=== PATIENT | female | born 1995 | race Caucasian/White ===

== ENCOUNTER → 2017-02-17 | Outpatient (CLI) | payer OTHER | LOC: MW.CHOBGYN 15:13 | PROVIDERS: ATTEND Advanced Practice Midwife | DX: Z34.90 Encounter for supervision of normal pregnancy, unspecified, unspecified trimester (principal) | CPT/HCPCS: 36415; 80305; 81003; 85025; 86592; 86762; 86803; 86850; 86900; 86901; 87086; 87340; 87389; 87491; 87591 ==

== ENCOUNTER → 2017-02-22 | Outpatient (CLI) | payer OTHER ==
--- NOTE | 2017-02-23 10:45 | US ---
Examination: Greater than 14 weeks transabdominal ultrasound with color Doppler and M-mode evaluatio n. HISTORY: FINDINGS: LMP is 09/28/2016 EVALUATION: Posterior placenta with a breech lie and grade 1. Visually amniotic fluid is withi n normal limits. Three-vessel cord is seen. Ventricles are within normal limits. Four chamber heart is noted. Heart rate is 156 beats per minute. BIOMETRY AND GESTATIONAL AGE: Biparietal diameter 5.3 cm. Abdominal circumference measures 16.7 cm. The femoral length is 3.6 cm w ith head circumference of 19.9 cm. Gestational age is 21 weeks and 5 days. The expected date of deli very is approximately 07/30/2017. Fetus weight is 439 grams. Overall the fetus is within the 79th pe rcentile. Other detail anatomy summarized into PACs sheet after the images. No anatomical anomalies. IMPRESSION: Single active IU with breech fetus. Posterior placenta with grade 1, no placenta previa. N o anomalies are seen. Amniotic fluid appears within normal limits.
== END ==
LOC: MW.US 15:00
PROVIDERS: ATTEND Advanced Practice Midwife
DX: Z34.90 Encounter for supervision of normal pregnancy, unspecified, unspecified trimester (principal); Z3A.21 21 weeks gestation of pregnancy
CPT/HCPCS: 76805; 76805-26; 85025; 86592; 86762; 86803; 86850; 86900; 86901; 87086; 87340; 87389

== ENCOUNTER 2017-06-24 02:27 | Inpatient (IN) | payer MEDICAID, SELFPAY ==
[2017-06-24] MEDS ORDERED: Water For Irrigation,Sterile 1,000 ML Container IRR PRN ×2 (03:06→05:47)
[2017-06-24] MEDS ORDERED: Misoprostol 200 MCG Tab PO PRN ×2 (03:06→05:47)
[2017-06-24] MEDS ORDERED: Lidocaine 1% 50 ML MDV INJECT PRN ×2 (03:06→05:47)
[2017-06-24] MEDS ORDERED: Butorphanol 1 MG/ML SDV IVPUSH PRN ×2 (03:06→05:47)
[2017-06-24] MEDS ORDERED: Sodium Chloride 0.9% 2.5 ML Syringe FLUSH PRN ×2 (03:06→05:47)
[2017-06-24] MEDS ORDERED: Sodium Chloride 0.9% 10 ML Syringe FLUSH PRN ×2 (03:06→05:47)
[2017-06-24] MEDS ORDERED: Methylergonovine 0.2 MG/1 ML Amp IM PRN ×3 (03:06→18:22)
[2017-06-24] MEDS ORDERED: Nalbuphine 10 MG/1 ML Vial IVPUSH PRN ×2 (03:06→05:47)
[2017-06-24] MEDS ORDERED: Carboprost Tromethamine 250 MCG/1 ML Amp IM PRN ×2 (03:06→05:47)
[2017-06-24] MEDS ORDERED: Lactated Ringers 1,000 ML IV SCH ×2 (03:15→06:00)
[2017-06-24] MEDS ORDERED: Oxytocin/Lactated Ringers 30 UNIT/500 ML BAG IV SCH ×2 (03:15→06:00)
[2017-06-24] MEDS ORDERED: Ropivacaine 0.2% 2 MG/ML 20 ML SDV ONE (04:34)
--- NOTE | 2017-06-24 05:05 | PCM.PREANE ---
Preanesthetic Assessment - Anesthesia/Transfusion/Family Hx Anesthesia History: Prior Anesthesia Without Reaction Family History of Anesthesia Reaction: No - Review of Systems Other: Reports: None - Physical Assessment Height: 5 ft Weight: 64.864 kg Mental Status: Alert & Oriented x3 Airway Class: Mallampati = 2 Dentition: Reports: Normal Dentition Thyro-Mental Finger Breadths: 3 Mouth Opening Finger Breadths: 2 ROM/Head Extension: Full - Lab Values: Laboratory Last Values WBC 11.59 K/uL (4.0-11.0) H 06/24/17 03:35 RBC 3.74 M/uL (4.30-5.90) L 06/24/17 03:35 Hgb 10.4 g/dL (12.0-16.0) L 06/24/17 03:35 Hct 32.0 % (36.0-46.0) L 06/24/17 03:35 MCV 85.6 fL (80.0-98.0) 06/24/17 03:35 MCH 27.8 pg (27.0-32.0) 06/24/17 03:35 MCHC 32.5 g/dL (31.0-37.0) 06/24/17 03:35 RDW Std Deviation 48.2 fl (28.0-62.0) 06/24/17 03:35 RDW Coeff of Denys 16 % (11.0-15.0) H 06/24/17 03:35 Plt Count 278 K/uL (150-400) 06/24/17 03:35 MPV 9.80 fL (7.40-12.00) 06/24/17 03:35 Nucleated RBC % 0.0 /100WBC 06/24/17 03:35 Nucleated RBCs # 0 K/uL 06/24/17 03:35 Urine Color RED 06/24/17 03:45 Urine Appearance SLT CLOUDY 06/24/17 03:45 Urine pH 7.0 (5.0-8.0) 06/24/17 03:45 Ur Specific Rel[place] 1.010 (1.001-1.035) 06/24/17 03:45 Urine Protein 30 mg/dL (NEGATIVE) 06/24/17 03:45 Urine Glucose (UA) NEGATIVE mg/dL (NEGATIVE) 06/24/17 03:45 Urine Ketones NEGATIVE mg/dL (NEGATIVE) 06/24/17 03:45 Urine Occult Blood LARGE (NEGATIVE) H 06/24/17 03:45 Urine Nitrite NEGATIVE (NEGATIVE) 06/24/17 03:45 Urine Bilirubin NEGATIVE (NEGATIVE) 06/24/17 03:45 Urine Urobilinogen 0.2 EU/dL (<2.0) 06/24/17 03:45 Ur Leukocyte Esterase SMALL (NEGATIVE) 06/24/17 03:45 Blood Type O POSITIVE 06/24/17 03:35 Antibody Screen NEGATIVE 06/24/17 03:35 - Allergies Allergies/Adverse Reactions: Allergies Allergy/AdvReac Type Severity Reaction Status Date / Time egg Allergy Rash Verified 06/24/17 03:04 Fish Containing Products Allergy Rash Verified 06/24/17 03:04 - Blood Blood Available: Yes Product(s) Available: PRBC - Acknowledgements Anesthesia Type Planned: Epidural Pt an Appropriate Candidate for the Planned Anesthesia: Yes Alternatives and Risks of Anesthesia Discussed w Pt/Guardian: Yes Pt/Guardian Understands and Agrees with Anesthesia Plan: Yes PreAnesthesia Questionnaire - Past Health History Medical/Surgical History: Denies Medical/Surgical History - Past Surgical History HEENT Surgical History: Reports: Oral Surgery - SUBSTANCE USE Smoking Status *Q: Never Smoker Recreational Drug Use History: No - CURRENT (IN HOUSE) MEDS Current Meds: Current Medications Butorphanol Tartrate (Stadol) 1 mg IVPUSH Q1H PRN PRN Reason: Pain Last Admin: 06/24/17 04:03 Dose: 1 mg Carboprost Tromethamine (Hemabate Ds) 250 mcg IM ASDIRECTED PRN PRN Reason: Post Hemorrhage Lactated Ringer's (Ringers, Lactated) 1,000 mls @ 150 mls/hr IV ASDIRECTED BOBY Last Admin: 06/24/17 03:38 Dose: 150 mls/hr Lidocaine HCl (Xylocaine 1%) 50 ml INJECT .ONCE PRN PRN Reason: Laceration repair Methylergonovine Maleate (Methergine) 0.2 mg IM ASDIRECTED PRN PRN Reason: Post Hemorrhage Misoprostol (Cytotec) 200 mcg PO .ONCE PRN PRN Reason: Post Hemorrhage Nalbuphine HCl (Nubain) 10 mg IVPUSH Q1H PRN PRN Reason: Pain (severe 7-10) Sodium Chloride (Saline Flush) 10 ml FLUSH ASDIRECTED PRN PRN Reason: Keep Vein Open Sodium Chloride (Saline Flush) 2.5 ml FLUSH ASDIRECTED PRN PRN Reason: Keep Vein Open Sterile Water (Sterile Water For Irrigation) 1,000 ml IRR ASDIRECTED PRN PRN Reason: delivery Discontinued Medications Oxytocin/Lactated Ringer's (Pitocin In Lr 30 Units/500 Ml) 30 unit in 500 mls @ 999 mls/hr IV TITRATE BOBY; 999 MUNITS/MIN PRN Reason: Protocol Stop: 06/24/17 03:46 Ropivacaine/Fentanyl/NS (Fentanyl 2 Mcg-Ropiv 0.2%-Ns) Confirm Administered Dose 100 mls @ as directed .ROUTE .STK-MED ONE Stop: 06/24/17 04:35 Ropivacaine (Naropin 0.2%) Confirm Administered Dose 20 ml .ROUTE .STK-MED ONE Stop: 06/24/17 04:35
[2017-06-24] MEDS ORDERED: Ondansetron 4 MG/2 ML SDV IVPUSH ONE (09:20)
[2017-06-24] MEDS ORDERED: hydrOXYzine Pamoate 25 MG Cap PO ONE (09:20)
[2017-06-24] MEDS ORDERED: Oxytocin/Lactated Ringers 30 UNIT/500 ML BAG ONE (14:44)
[2017-06-24] MEDS ORDERED: Ampicillin/Sulbactam Na 3 GM in Sodium Chloride 0.9% 100 ML IV ONE ×2 (16:06→16:17)
--- NOTE | 2017-06-24 16:20 | PCM.SN ---
- Free Text/Narrative Note: Called for "epidural pump" and medication alarm at 1540. I was not in hospital and did not know anything about the patient nor the unavailabiltity of the roofing contractor POLITICAL RESEARCH SCIENTIST....who I subsequently discovered was in the OR with a general anesthetic. The tech that called me from OB was directed by me to summon the RN on the case and inform me of the "clinical" situation. She did inform me and I stated that if medication was immediately required to use orders of the surgeon for analgesia..I was on my way but would be 15+min out until arriving to assist. By the time I got here the POLITICAL RESEARCH SCIENTIST had completed the case and she went to OB and resolved the problem.
[2017-06-24] MEDS ORDERED: Lanolin 100% Cream 7 GM Tube TOP PRN (18:22)
[2017-06-24] MEDS ORDERED: Benzocaine/Menthol 20%-0.5% Spray 78 GM Cannister TOP PRN (18:22)
[2017-06-24] MEDS ORDERED: Witch Hazel Medicated Pads 40/Jar TOP PRN (18:22)
[2017-06-24] MEDS ORDERED: Bisacodyl 10 MG Supp RECTAL PRN (18:22)
[2017-06-24] MEDS ORDERED: Acetaminophen 500 MG Tab PO PRN (18:22)
[2017-06-24] MEDS: oxyCODONE 5 MG Tab PO PRN (20:26)
[2017-06-24] MEDS: Ibuprofen 800 MG Tab PO PRN (20:27)
--- NOTE | 2017-06-24 22:09 | OR ---
SURGEON: Bren Madrigal M.D. DATE OF PROCEDURE: 06/24/2017 PREOPERATIVE DIAGNOSIS: Thirty-eight and 3/7th week intrauterine , active spontaneous labor. POSTOPERATIVE DIAGNOSES: Thirty-eight and 3/7th week intrauterine , active spontaneous labor and maternal fever. PROCEDURE: Term spontaneous vaginal delivery with repair of second-degree laceration. ANESTHESIA: Epidural. ESTIMATED BLOOD LOSS: Less than 300 mL. FINDINGS: Live born female, scores 9 and 9, weighing 3210 g. Placenta spontaneous, Schultze intact with 3 vessels. Perineum with a second-degree perineal laceration. COMPLICATIONS: None known. and mother remained in [facility] in good condition. BRIEF HISTORY: This is a 22-year-old female. She is . She presented in active spontaneous labor, category 1 heart tones. She was admitted to Labor and Delivery. When she was 4 to 5 cm dilated, she received an epidural for pain control. She had artificial rupture of membranes. They were blood tinged, but clear fluid was noted. She continued to have overall category 1 heart tones with brief episodes of category 2 heart tones and progressed to complete. DESCRIPTION OF PROCEDURE: With the patient in dorsal lithotomy position, the patient pushed. Before pushing, an approximately 3 hours prior to delivery, she did develop a fever of 101.5. She was started on Unasyn and was allowed to continue to labor. She then began to push to a 5+ station, at which time the head was delivered spontaneously and atraumatically over the perineum with support, with subsequent delivery of the 's shoulders and body without any difficulty. Meconium was noted at the time of delivery and therefore bulb suction of the nose and mouth was performed. The infant was a live born female, scores 9 and 9, weighing 3210 g. Cord blood was collected for ABGs as well as routine cord blood sampling after the cord had been doubly clamped and cut after it had ceased to pulsate. Pitocin was initiated after delivery of the infant to assist with delivery of the placenta, which was delivered spontaneously, Schultze intact with 3 vessels. Upon inspection of the pelvis and perineum, there were no periurethral, vaginal sidewall, cervical, or rectal lacerations. There was a second-degree perineal laceration. This was repaired using multiple interrupted sutures to reapproximate the transverse perineal muscle as well as the deep perineal tissue, a running lock suture of 2-0 Caprosyn for the vaginal mucosa and subcuticular sutures that were utilized to reapproximate the skin which had irregular tears on the perineum. A rectal exam confirmed that there were no sutures in the rectum and that the sphincter was intact. The placenta was inspected and appeared intact with 3 vessels. There was no foul smell or odor to the placenta, but it was sent to Pathology. She will also be continued on Unasyn 1.5 g every 6 hours for at least the first 24 hours . Mother and are in the [facility] in good condition. ELLIOTT UREÑA /[id number]
[2017-06-24] MEDS: Ampicillin/Sulbactam Na 1.5 GM in Sodium Chloride 0.9% 50 ML IV SCH (22:31)
[2017-06-24] MEDS: Docusate Sodium 100 MG Cap PO PRN (22:32)
[2017-06-25] MEDS: Ibuprofen 800 MG Tab PO PRN ×3 (03:31→22:58)
[2017-06-25] MEDS: Ampicillin/Sulbactam Na 1.5 GM in Sodium Chloride 0.9% 50 ML IV SCH ×3 (04:32→16:45)
[2017-06-25] MEDS: oxyCODONE 5 MG Tab PO PRN ×2 (07:42→20:46)
--- NOTE | 2017-06-25 09:50 | PCM.PNPP ---
- General Info Date of Service: 06/25/17 Functional Status: Reports: Pain Controlled, Tolerating Diet, Ambulating, Urinating - Review of Systems General: Reports: No Symptoms HEENT: Reports: No Symptoms Pulmonary: Reports: No Symptoms Cardiovascular: Reports: No Symptoms Gastrointestinal: Reports: No Symptoms Genitourinary: Reports: No Symptoms Musculoskeletal: Reports: No Symptoms Skin: Reports: No Symptoms Neurological: Reports: No Symptoms Psychiatric: Reports: No Symptoms - General Info Date of Service: 06/25/17 - Patient Data Vital Signs - Most Recent: Last Vital Signs Temp 36.4 C 06/25/17 08:23 Pulse 103 H 06/25/17 08:23 Resp 16 06/25/17 08:23 BP 123/71 06/25/17 08:23 Pulse Ox 98 06/25/17 08:23 Weight - Most Recent: 64.864 kg Lab Results - Last 24 Hours: Laboratory Results - last 24 hr 06/25/17 Range/Units 05:35 Hgb 8.0 L (12.0-16.0) g/dL Hct 25.0 L (36.0-46.0) % Med Orders - Current: Current Medications Acetaminophen (Tylenol Extra Strength) 1,000 mg PO Q4H PRN PRN Reason: Pain Benzocaine/Menthol (Dermoplast Pain Relief 20%-0.5% [place]) 78 gm TOP ASDIRECTED PRN PRN Reason: Perineal Comfort Measure Last Admin: 06/24/17 19:20 Dose: 78 gm Bisacodyl (Dulcolax) 10 mg RECTAL .ONCE PRN PRN Reason: Constipation Docusate Sodium (Colace) 100 mg PO BID PRN PRN Reason: Constipation Last Admin: 06/24/17 22:32 Dose: 100 mg Emollient Ointment (Lansinoh Hpa) 0 gm TOP ASDIRECTED PRN PRN Reason: Sore Nipples Ampicillin Sodium/Sulbactam (Sodium 1.5 gm/ Sodium Chloride) 50 mls @ 200 mls/ hr IV Q6H BOBY Last Admin: 06/25/17 04:32 Dose: 200 mls/hr Ibuprofen (Motrin) 800 mg PO Q6H PRN PRN Reason: Pain Last Admin: 06/25/17 03:31 Dose: 800 mg Methylergonovine Maleate (Methergine) 0.2 mg IM .ONCE PRN PRN Reason: Excessive Vaginal Bleeding Oxycodone HCl (Oxycodone) 5 mg PO Q2H PRN PRN Reason: Pain Last Admin: 06/25/17 07:42 Dose: 5 mg Witch Cassie (Tucks) 1 pad TOP ASDIRECTED PRN PRN Reason: comfort care Last Admin: 06/24/17 19:19 Dose: 1 pad Discontinued Medications Butorphanol Tartrate (Stadol) 1 mg IVPUSH Q1H PRN PRN Reason: Pain Last Admin: 06/24/17 04:03 Dose: 1 mg Butorphanol Tartrate (Stadol) 1 mg IVPUSH Q1H PRN PRN Reason: Pain Carboprost Tromethamine (Hemabate Ds) 250 mcg IM ASDIRECTED PRN PRN Reason: Post Hemorrhage Hydroxyzine Pamoate (Vistaril) 50 mg PO ONETIME ONE Stop: 06/24/17 09:21 Last Admin: 06/24/17 09:33 Dose: 50 mg Lactated Ringer's (Ringers, Lactated) 1,000 mls @ 150 mls/hr IV ASDIRECTED BOBY Last Admin: 06/24/17 03:38 Dose: 150 mls/hr Oxytocin/Lactated Ringer's (Pitocin In Lr 30 Units/500 Ml) 30 unit in 500 mls @ 999 mls/hr IV TITRATE BOBY; 999 MUNITS/MIN PRN Reason: Protocol Stop: 06/24/17 03:46 Last Admin: 06/24/17 21:54 Dose: Not Given Lactated Ringer's (Ringers, Lactated) 1,000 mls @ 150 mls/hr IV ASDIRECTED BOBY Last Admin: 06/24/17 13:15 Dose: 150 mls/hr Oxytocin/Lactated Ringer's (Pitocin In Lr 30 Units/500 Ml) 30 unit in 500 mls @ 999 mls/hr IV TITRATE BOBY; 999 MUNITS/MIN PRN Reason: Protocol Stop: 06/24/17 06:31 Last Admin: 06/24/17 21:54 Dose: Not Given Oxytocin/Lactated Ringer's (Pitocin In Lr 30 Units/500 Ml) Confirm Administered Dose 30 unit in 500 mls @ as directed .ROUTE .STK-MED ONE Stop: 06/24/17 14:45 Last Admin: 06/24/17 14:54 Dose: 2 unit Ropivacaine/Fentanyl/NS (Fentanyl 2 Mcg-Ropiv 0.2%-Ns) Confirm Administered Dose 100 mls @ as directed .ROUTE .eduFire-MED ONE Stop: 06/24/17 16:04 Last Admin: 06/24/17 21:56 Dose: Not Given Ampicillin Sodium/Sulbactam (Sodium 3 gm/ Sodium Chloride) 100 mls @ 200 mls/ hr IV ONETIME ONE Stop: 06/24/17 16:35 Last Admin: 06/24/17 16:30 Dose: 200 mls/hr Ampicillin Sodium/Sulbactam (Sodium 3 gm/ Sodium Chloride) 100 mls @ 200 mls/ hr IV ONETIME ONE Stop: 06/24/17 16:35 Last Admin: 06/24/17 16:32 Dose: 200 mls/hr Lidocaine HCl (Xylocaine 1%) 50 ml INJECT .ONCE PRN PRN Reason: Laceration repair Last Admin: 06/24/17 17:45 Dose: 50 ml Methylergonovine Maleate (Methergine) 0.2 mg IM ASDIRECTED PRN PRN Reason: Post Hemorrhage Misoprostol (Cytotec) 200 mcg PO .ONCE PRN PRN Reason: Post Hemorrhage Nalbuphine HCl (Nubain) 10 mg IVPUSH Q1H PRN PRN Reason: Pain (severe 7-10) Ondansetron HCl (Zofran) 4 mg IVPUSH ONETIME ONE Stop: 06/24/17 09:21 Last Admin: 06/24/17 09:32 Dose: 4 mg Ropivacaine (Naropin 0.2%) Confirm Administered Dose 20 ml .ROUTE .STZulahoo-MED ONE Stop: 06/24/17 04:35 Last Admin: 06/24/17 21:55 Dose: Not Given Sodium Chloride (Saline Flush) 10 ml FLUSH ASDIRECTED PRN PRN Reason: Keep Vein Open Sodium Chloride (Saline Flush) 2.5 ml FLUSH ASDIRECTED PRN PRN Reason: Keep Vein Open Sterile Water (Sterile Water For Irrigation) 1,000 ml IRR ASDIRECTED PRN PRN Reason: delivery Last Admin: 06/24/17 17:13 Dose: 1,000 ml - Interaction Disposition, : in Room with Family Interaction: Holding Infant Infant Feeding: Breastfed Infant; Nursed Well Support Person: Friend - Recovery Exam Fundal Tone: Firm Fundal Level: At Umbilicus Fundal Placement: Midline Lochia Amount: Scant, Small Lochia Color: Rubra/Red Perineum Description: Intact, Minimal Bruising/Swelling Other Perinuem Description: 2nd degree laceration Episiotomy/Laceration: Approximated Bladder Status: Nonpalpable, Voiding Urinary Elimination: Voided - Exam General: Alert, Oriented HEENT: Pupils Equal Lungs: Normal Respiratory Effort GI/Abdominal Exam: Soft, Non-Tender, No Distention, No Mass Extremities: Normal Inspection, Normal Range of Motion, Non-Tender, No Pedal Edema, Normal Capillary Refill Skin: Warm, Dry, Intact Neurological: No New Focal Deficit Psy/Mental Status: Alert, Normal Affect, Normal Mood - Problem List & Annotations (1) Vaginal delivery SNOMED Code(s): 778101355 Code(s): O80 - ENCOUNTER FOR FULL-TERM UNCOMPLICATED DELIVERY Status: Acute Current Visit: Yes - Problem List Review Problem List Initiated/Reviewed/Updated: Yes - My Orders Last 24 Hours: My Active Orders 06/24/17 18:21 Resuscitation Status Routine 06/24/17 18:22 Patient Status [ADT] Routine May Shower [RC] ASDIRECTED Up ad Wendy [RC] ASDIRECTED Vital Signs [RC] PER UNIT ROUTINE Acetaminophen [Tylenol Extra Strength] 1,000 mg PO Q4H PRN Benzocaine/Menthol [Dermoplast Pain Relief 20%-0.5% [place]] 78 gm TOP ASDIRECTED PRN Bisacodyl [Dulcolax] 10 mg RECTAL .ONCE PRN Docusate Sodium [Colace] 100 mg PO BID PRN Ibuprofen [Motrin] 800 mg PO Q6H PRN Lanolin [Lansinoh HPA] See Dose Instructions TOP ASDIRECTED PRN Methylergonovine [Methergine] 0.2 mg IM .ONCE PRN Witch Cassie [Tucks] 1 pad TOP ASDIRECTED PRN oxyCODONE 5 mg PO Q2H PRN Assess Lochia [WOMSER] Per Unit Routine Assess Uterine Involution [WOMSER] Per Unit Routine Perineal Care [OM.PC] Per Unit Routine Peripheral IV Discontinue [OM.PC] Routine 06/24/17 22:30 Ampicillin/Sulbactam Na [Unasyn] 1.5 gm Sodium Chloride 0.9% [Normal Saline] 50 ml IV Q6H 06/24/17 Dinner Regular Diet [DIET] - Assessment Assessment:: PPD#1 after , febrile in labor, will complete 24 hours of Unasyn this afternoon. Afebrile since delivery. well. - Plan Plan:: Continue care, anticipate discharge tomorrow.
[2017-06-25] MEDS: Docusate Sodium 100 MG Cap PO PRN (10:34)
[2017-06-26] MEDS: oxyCODONE 5 MG Tab PO PRN (01:11)
[2017-06-26] MEDS: Ibuprofen 800 MG Tab PO PRN (06:14)
[2017-06-26 08:28] VITALS: BP 121/74
[2017-06-26] MEDS: Docusate Sodium 100 MG Cap PO PRN (08:43)
--- NOTE | 2017-06-26 09:28 | PCM48HPAN ---
Post Anesthesia Note - EVALUATION WITHIN 48HRS OF ANESTHETIC Vital Signs in Normal Range: Yes Patient Participated in Evaluation: Yes Respiratory Function Stable: Yes Airway Patent: Yes Cardiovascular Function Stable: Yes Hydration Status Stable: Yes Pain Control Satisfactory: Yes Nausea and Vomiting Control Satisfactory: Yes Mental Status Recovered: Yes
--- NOTE | 2017-06-26 12:19 | PCM.DCSUM1 ---
Discharge Summary - Hospital Course Free Text/Narrative:: Discharge home with . Follow up in 6 weeks or sooner if needed. - Discharge Data Discharge Date: 06/26/17 Discharge Disposition: Home, Self-Care 01 Condition: Good - Discharge Diagnosis/Problem(s) (1) (normal spontaneous vaginal delivery) SNOMED Code(s): 73281101 ICD Code: O80 - ENCOUNTER FOR FULL-TERM UNCOMPLICATED DELIVERY Status: Acute Priority: High Current Visit: Yes - Patient Instructions Diet: Usual Diet as Tolerated Activity: As Tolerated, Rest and Relax Today Driving: May Drive Today Showering/Bathing: May Shower Notify Provider of: Fever, Increased Pain, Swelling and Redness, Nausea and/or Vomiting Other/Special Instructions: Discharge home with . Follow up in 6 weeks or sooner if needed. - Discharge Plan Patient Handouts: Home Care Instructions for Mom, Vaginal Delivery, Care After Referrals: Josefina Page CNM [Mid-] - 08/08/17 3:00 pm (6 weeks appointment) - General Info Date of Service: 06/26/17 Functional Status: Reports: Pain Controlled, Tolerating Diet, Ambulating, Urinating - Review of Systems General: Reports: No Symptoms HEENT: Reports: No Symptoms Pulmonary: Reports: No Symptoms Cardiovascular: Reports: No Symptoms Gastrointestinal: Reports: No Symptoms Genitourinary: Reports: No Symptoms Musculoskeletal: Reports: No Symptoms Skin: Reports: No Symptoms Neurological: Reports: No Symptoms Psychiatric: Reports: No Symptoms - Patient Data Vitals - Most Recent: Last Vital Signs Temp 36.5 C 06/26/17 08:00 Pulse 78 06/26/17 08:00 Resp 18 06/26/17 08:00 BP 121/74 06/26/17 08:00 Pulse Ox 98 06/26/17 08:00 Weight - Most Recent: 64.864 kg Med Orders - Current: Current Medications Acetaminophen (Tylenol Extra Strength) 1,000 mg PO Q4H PRN PRN Reason: Pain Benzocaine/Menthol (Dermoplast Pain Relief 20%-0.5% [place]) 78 gm TOP ASDIRECTED PRN PRN Reason: Perineal Comfort Measure Last Admin: 06/24/17 19:20 Dose: 78 gm Bisacodyl (Dulcolax) 10 mg RECTAL .ONCE PRN PRN Reason: Constipation Docusate Sodium (Colace) 100 mg PO BID PRN PRN Reason: Constipation Last Admin: 06/26/17 08:43 Dose: 100 mg Emollient Ointment (Lansinoh Hpa) 0 gm TOP ASDIRECTED PRN PRN Reason: Sore Nipples Last Admin: 06/25/17 20:47 Dose: 0.25 oz Ibuprofen (Motrin) 800 mg PO Q6H PRN PRN Reason: Pain Last Admin: 06/26/17 06:14 Dose: 800 mg Methylergonovine Maleate (Methergine) 0.2 mg IM .ONCE PRN PRN Reason: Excessive Vaginal Bleeding Oxycodone HCl (Oxycodone) 5 mg PO Q2H PRN PRN Reason: Pain Last Admin: 06/26/17 01:11 Dose: 5 mg Witch Cassie (Tucks) 1 pad TOP ASDIRECTED PRN PRN Reason: comfort care Last Admin: 06/24/17 19:19 Dose: 1 pad Discontinued Medications Butorphanol Tartrate (Stadol) 1 mg IVPUSH Q1H PRN PRN Reason: Pain Last Admin: 06/24/17 04:03 Dose: 1 mg Butorphanol Tartrate (Stadol) 1 mg IVPUSH Q1H PRN PRN Reason: Pain Carboprost Tromethamine (Hemabate Ds) 250 mcg IM ASDIRECTED PRN PRN Reason: Post Hemorrhage Hydroxyzine Pamoate (Vistaril) 50 mg PO ONETIME ONE Stop: 06/24/17 09:21 Last Admin: 06/24/17 09:33 Dose: 50 mg Lactated Ringer's (Ringers, Lactated) 1,000 mls @ 150 mls/hr IV ASDIRECTED BOBY Last Admin: 06/24/17 03:38 Dose: 150 mls/hr Oxytocin/Lactated Ringer's (Pitocin In Lr 30 Units/500 Ml) 30 unit in 500 mls @ 999 mls/hr IV TITRATE BOBY; 999 MUNITS/MIN PRN Reason: Protocol Stop: 06/24/17 03:46 Last Admin: 06/24/17 21:54 Dose: Not Given Lactated Ringer's (Ringers, Lactated) 1,000 mls @ 150 mls/hr IV ASDIRECTED BOBY Last Admin: 06/24/17 13:15 Dose: 150 mls/hr Oxytocin/Lactated Ringer's (Pitocin In Lr 30 Units/500 Ml) 30 unit in 500 mls @ 999 mls/hr IV TITRATE BOBY; 999 MUNITS/MIN PRN Reason: Protocol Stop: 06/24/17 06:31 Last Admin: 06/24/17 21:54 Dose: Not Given Oxytocin/Lactated Ringer's (Pitocin In Lr 30 Units/500 Ml) Confirm Administered Dose 30 unit in 500 mls @ as directed .ROUTE .STK-MED ONE Stop: 06/24/17 14:45 Last Admin: 06/24/17 14:54 Dose: 2 unit Ropivacaine/Fentanyl/NS (Fentanyl 2 Mcg-Ropiv 0.2%-Ns) Confirm Administered Dose 100 mls @ as directed .ROUTE .STK-MED ONE Stop: 06/24/17 16:04 Last Admin: 06/24/17 21:56 Dose: Not Given Ampicillin Sodium/Sulbactam (Sodium 3 gm/ Sodium Chloride) 100 mls @ 200 mls/ hr IV ONETIME ONE Stop: 06/24/17 16:35 Last Admin: 06/24/17 16:30 Dose: 200 mls/hr Ampicillin Sodium/Sulbactam (Sodium 1.5 gm/ Sodium Chloride) 50 mls @ 200 mls/ hr IV Q6H BBOY Last Admin: 06/25/17 16:45 Dose: 200 mls/hr Ampicillin Sodium/Sulbactam (Sodium 3 gm/ Sodium Chloride) 100 mls @ 200 mls/ hr IV ONETIME ONE Stop: 06/24/17 16:35 Last Admin: 06/24/17 16:32 Dose: 200 mls/hr Lidocaine HCl (Xylocaine 1%) 50 ml INJECT .ONCE PRN PRN Reason: Laceration repair Last Admin: 06/24/17 17:45 Dose: 50 ml Methylergonovine Maleate (Methergine) 0.2 mg IM ASDIRECTED PRN PRN Reason: Post Hemorrhage Misoprostol (Cytotec) 200 mcg PO .ONCE PRN PRN Reason: Post Hemorrhage Nalbuphine HCl (Nubain) 10 mg IVPUSH Q1H PRN PRN Reason: Pain (severe 7-10) Ondansetron HCl (Zofran) 4 mg IVPUSH ONETIME ONE Stop: 06/24/17 09:21 Last Admin: 06/24/17 09:32 Dose: 4 mg Ropivacaine (Naropin 0.2%) Confirm Administered Dose 20 ml .ROUTE .STK-MED ONE Stop: 06/24/17 04:35 Last Admin: 06/24/17 21:55 Dose: Not Given Sodium Chloride (Saline Flush) 10 ml FLUSH ASDIRECTED PRN PRN Reason: Keep Vein Open Sodium Chloride (Saline Flush) 2.5 ml FLUSH ASDIRECTED PRN PRN Reason: Keep Vein Open Sterile Water (Sterile Water For Irrigation) 1,000 ml IRR ASDIRECTED PRN PRN Reason: delivery Last Admin: 06/24/17 17:13 Dose: 1,000 ml - Exam General: Reports: Alert, Oriented, Cooperative, No Acute Distress Lungs: Reports: Normal Respiratory Effort GI/Abdominal Exam: Soft, Non-Tender, No Distention, No Mass (Female) Exam: Vaginal Bleeding Rectal (Female) Exam: Deferred Back Exam: Reports: Full Range of Motion Extremities: Normal Range of Motion, Non-Tender, No Pedal Edema, Normal Capillary Refill Skin: Reports: Warm, Dry, Intact Wound/Incisions: Reports: Healing Well Neurological: Reports: No New Focal Deficit, Normal Gait, Normal Speech, Normal Tone Psy/Mental Status: Reports: Alert, Normal Affect, Normal Mood *Q Meaningful Use (DIS) - VTE *Q VTE Criteria *Q: - Stroke *Q Stroke Criteria *Q: - AMI *Q AMI Criteria *Q:
== END 2017-06-26 13:20 | disposition home or self-care (01) | DRG 774 ==
LOC: MW.OBCHECK 02:27 → MW.OB 02:31 → MW.OBCHECK 03:06 → MW.OB 03:06 → OBSVTOIN 17:13 → MW.OB 21:00
PROVIDERS: ADMIT Obstetrics & Gynecology; ATTEND Obstetrics & Gynecology
PROC: 10E0XZZ Delivery of Products of Conception, External Approach (ICD-10-PCS; principal; 2017-06-24)
PROC: 0KQM0ZZ Repair Perineum Muscle, Open Approach (ICD-10-PCS; 2017-06-24)
PROC: 10907ZC Drainage of Amniotic Fluid, Therapeutic from Products of Conception, Via Natural or Artificial Opening (ICD-10-PCS; 2017-06-24)
DX: O70.1 Second degree perineal laceration during delivery (principal); O75.2 Pyrexia during labor, not elsewhere classified; Z37.0 Single live birth; O77.0 Labor and delivery complicated by meconium in amniotic fluid; Z3A.38 38 weeks gestation of pregnancy
CPT/HCPCS: 01967; 36415; 59025; 81003; 85014; 85018; 85027; 86850; 86900; 86901; 88305; A9270-GY; J0287; J0295; J0595; J2405; J2795; J7030; J7050; J7120